=== PATIENT | male | born 1945 | race Caucasian/White ===

== ENCOUNTER 2020-05-10 20:57 | Inpatient (IN) ==
[2020-05-10] MEDS ORDERED: ACETAMINOPHEN 500 MG TABLET PO STA (21:30)
[2020-05-10] MEDS ORDERED: SODIUM CHLORIDE 0.9% 1,000 ML IV STA (21:34)
[2020-05-10] MEDS ORDERED: PIPERACILLIN/TAZOBACTAM 3,375 MG in SODIUM CHLORIDE 0.9% 100 ML IV STA (21:34)
[2020-05-10 21:57] LABS: Basophils % 0.2 % (0.0-0.8); Eosinophils % 0.2 % (0.00-10.9); Hematocrit 48.2 VOL% (42.0-52.0); Hemoglobin 15.8 GM/DL (14.0-18.0); Immature Granulocytes % 1.5 %; Immature Granulocytes Absolute 0.28 #; Lymphocytes # 0.8 10*3/uL (1.4-4.0); Lymphocytes % 4.2 % (21.2-54.2); Mean Corpuscular HGB Conc 32.8 GM/DL (32-36); Mean Corpuscular Volume 93.6 FL (87-102); Mean Platelet Volume 11.3 FL (9.6-12.0); Monocytes % 5.5 % (1.7-12.7); Neutrophils % 88.4 % (38.7-73.9); Platelet Count 273 T/CUMM (130-400); Red Blood Count 5.15 MC/CUMM (3.8-5.5); Red Cell Distribution Width 13.2 % (9.3-17.3); White Blood Count 19.2 T/CUMM (4-12)
[2020-05-10 22:06] LABS: Alanine Aminotransferase 48 U/L (16-61); Albumin 3.4 G/DL (3.4-5.0); Alkaline Phosphatase 135 U/L (45-117); Aspartate Amino Transferase 30 U/L (0-37); Bilirubin,Total < 0.39 MG/DL (0.2-1.0); Blood Urea Nitrogen 34 MG/DL (7-18); Calcium 8.7 MG/DL (8.5-10.1); Carbon Dioxide 28 MMOL/L (21-32); Estimated Glom Filtration Rate 33 ML/MIN; Glucose 133 MG/DL (74-106); Osmolality,Calculated 288.4 MOS/KG (273-304); Potassium 4.2 MMOL/L (3.5-5.1); Sodium 140 MMOL/L (136-145); Total Protein 7.1 G/DL (6.4-8.3); Troponin I < 0.015 NG/ML (0.00-0.045)
[2020-05-10 22:09] LABS: Bacteria,Urine Occasional /HPF (Few); Bilirubin,Urine Negative (Negative); Blood, Urine Large mg/dL (Negative); Glucose,Urine (UA) Negative (Negative); Ketones,Urine Negative (Negative); Mucus,Urine Occasional /LPF (Occasional); Nitrite,Urine Positive (Negative); Protein,Urine 30 MG/DL; RBC,Urine 19 /HPF (0-4); Urine Appearance Slightly Hazy (Clear); Urine Color Yellow (Yellow); Urine Specific Gravity 1.015 (1.001-1.035); Urine Urobilinogen < 2.0 EU/DL (0.2-1.0); WBC,Urine 59 /HPF (0-6)
[2020-05-10 22:10] LABS: Barbiturates Screen,Urine Negative (Negative); Benzodiazepines Screen,Urine Negative (Negative); Cannabinoid Screen,Urine Negative (Negative); Opiate Screen,Urine Negative (Negative); Phencyclidine Screen,Urine Negative (Negative)
[2020-05-10 22:24] LABS: Band Neutrophils 2 % (0-10); Lymphocytes 5 % (20-55); Platelet Estimate Adequate; Segmented Neutrophils 88 % (50-85); Total Cells Counted 100
[2020-05-10 22:27] LABS: INR 1.1; PT Patient Result 11.4 SECS (9.8-11.9)
[2020-05-10] MEDS ORDERED: MAGNESIUM SULF RIDER 2 GM in PREMIX 1 EACH IV STA (22:28)
[2020-05-10] MEDS ORDERED: DEXTROSE 50% 25 GM/50 ML VIAL IV PRN (22:59)
[2020-05-10] MEDS ORDERED: MORPHINE 4 MG/1 ML VIAL IV PRN (22:59)
[2020-05-10] MEDS ORDERED: ONDANSETRON 4 MG/2 ML VIAL IV PRN (22:59)
[2020-05-10] MEDS ORDERED: GLUCAGON 1 MG VIAL IM PRN (22:59)
[2020-05-10] MEDS ORDERED: ACETAMINOPHEN 325 MG TABLET PO PRN (22:59)
[2020-05-11] MEDS: SODIUM CHLORIDE 0.9% 1,000 ML IV SCH ×3 (06:47→18:03)
[2020-05-11] MEDS: PIPERACILLIN/TAZOBACTAM 3,375 MG in SODIUM CHLORIDE 0.9% 100 ML IV SCH ×3 (06:47→21:03)
[2020-05-11 08:29] LABS: Basophils % 0.2 % (0.0-0.8); Eosinophils # 0.1 10*3/uL (0.0-0.87); Eosinophils % 0.5 % (0.00-10.9); Hematocrit 42.7 VOL% (42.0-52.0); Hemoglobin 13.7 GM/DL (14.0-18.0); Immature Granulocytes % 1.1 %; Lymphocytes # 1.5 10*3/uL (1.4-4.0); Lymphocytes % 8.6 % (21.2-54.2); Mean Corpuscular HGB Conc 32.1 GM/DL (32-36); Mean Corpuscular Volume 93.4 FL (87-102); Mean Platelet Volume 11.1 FL (9.6-12.0); Monocytes % 8.8 % (1.7-12.7); Neutrophils % 80.8 % (38.7-73.9); Platelet Count 226 T/CUMM (130-400); Red Blood Count 4.57 MC/CUMM (3.8-5.5); Red Cell Distribution Width 13.4 % (9.3-17.3); White Blood Count 17.6 T/CUMM (4-12)
[2020-05-11 08:51] LABS: Albumin 2.7 G/DL (3.4-5.0); Calcium 8.7 MG/DL (8.5-10.1); Osmolality,Calculated 285.4 MOS/KG (273-304); Potassium 3.7 MMOL/L (3.5-5.1); Total Protein 6.1 G/DL (6.4-8.3)
[2020-05-11] MEDS: PREGABALIN 100 MG CAPSULE PO SCH ×2 (16:13→21:02)
[2020-05-12] MEDS: PIPERACILLIN/TAZOBACTAM 3,375 MG in SODIUM CHLORIDE 0.9% 100 ML IV SCH ×3 (05:58→21:16)
[2020-05-12 06:16] LABS: Basophils % 0.4 % (0.0-0.8); Eosinophils # 0.3 10*3/uL (0.0-0.87); Eosinophils % 2.3 % (0.00-10.9); Hematocrit 41.5 VOL% (42.0-52.0); Hemoglobin 13.4 GM/DL (14.0-18.0); Immature Granulocytes % 1.5 %; Immature Granulocytes Absolute 0.17 #; Lymphocytes # 1.5 10*3/uL (1.4-4.0); Lymphocytes % 13.2 % (21.2-54.2); Mean Corpuscular HGB Conc 32.3 GM/DL (32-36); Mean Corpuscular Volume 94.3 FL (87-102); Mean Platelet Volume 11.4 FL (9.6-12.0); Monocytes % 9.4 % (1.7-12.7); Neutrophils % 73.2 % (38.7-73.9); Platelet Count 225 T/CUMM (130-400); Red Cell Distribution Width 13.5 % (9.3-17.3); White Blood Count 11.3 T/CUMM (4-12)
[2020-05-12 06:50] LABS: Calcium 8.4 MG/DL (8.5-10.1); Osmolality,Calculated 284.4 MOS/KG (273-304); Potassium 3.6 MMOL/L (3.5-5.1)
[2020-05-12] MEDS: PREGABALIN 100 MG CAPSULE PO SCH ×2 (08:17→21:15)
[2020-05-12] MEDS: SODIUM CHLORIDE 0.9% 1,000 ML IV SCH ×2 (08:17→21:15)
[2020-05-12] MEDS ORDERED: MAGNESIUM SULF RIDER 4 GM in PREMIX 1 EACH IV PRN (08:23)
[2020-05-12] MEDS ORDERED: MAGNESIUM SULF RIDER 2 GM in PREMIX 1 EACH IV PRN (08:23)
[2020-05-12] MEDS ORDERED: POTASSIUM CHLORIDE RIDER 10 MEQ in PREMIX 1 EACH IV PRN (08:24)
[2020-05-13] MEDS: PIPERACILLIN/TAZOBACTAM 3,375 MG in SODIUM CHLORIDE 0.9% 100 ML IV SCH (05:25)
[2020-05-13 05:42] LABS: Basophils % 0.4 % (0.0-0.8); Eosinophils # 0.3 10*3/uL (0.0-0.87); Eosinophils % 3.1 % (0.00-10.9); Hematocrit 40.7 VOL% (42.0-52.0); Hemoglobin 12.9 GM/DL (14.0-18.0); Immature Granulocytes % 1.2 %; Immature Granulocytes Absolute 0.12 #; Lymphocytes # 1.6 10*3/uL (1.4-4.0); Lymphocytes % 15.9 % (21.2-54.2); Mean Corpuscular HGB Conc 31.7 GM/DL (32-36); Mean Corpuscular Volume 95.3 FL (87-102); Mean Platelet Volume 11.6 FL (9.6-12.0); Monocytes % 10.3 % (1.7-12.7); Neutrophils % 69.1 % (38.7-73.9); Platelet Count 226 T/CUMM (130-400); Red Blood Count 4.27 MC/CUMM (3.8-5.5); Red Cell Distribution Width 13.2 % (9.3-17.3); White Blood Count 9.8 T/CUMM (4-12)
[2020-05-13 05:59] LABS: Calcium 8.8 MG/DL (8.5-10.1); Osmolality,Calculated 286.3 MOS/KG (273-304); Potassium 3.5 MMOL/L (3.5-5.1)
[2020-05-13] MEDS: PREGABALIN 100 MG CAPSULE PO SCH ×2 (08:59→20:39)
[2020-05-13] MEDS ORDERED: LIDOCAINE 2% TOP JELLY 20 ML VIAL INTRAURETH ONE ×2 (12:38→12:42)
[2020-05-13] MEDS ORDERED: cefTRIAXone 1,000 MG in SYRINGE 1 EACH IV SCH (14:00)
[2020-05-13] MEDS: SODIUM CHLORIDE 0.9% 1,000 ML IV SCH ×3 (18:11→20:39)
[2020-05-13] MEDS ORDERED: OXYBUTYNIN XL 15 MG TABLET PO SCH (21:00)
[2020-05-14] MEDS: PREGABALIN 100 MG CAPSULE PO SCH (08:36)
[2020-05-14 11:39] VITALS: BP 127/67
== END 2020-05-14 13:40 | disposition home or self-care (01) | DRG 690 ==
LOC: EDUNIT# → N.EDINP 20:57 → N.ED 20:57 → N.3E 23:47
PROVIDERS: ADMIT Internal Medicine; ATTEND Internal Medicine